=== PATIENT | female | born 1940 ===

== ENCOUNTER 2017-04-30 15:00 | Inpatient (IN) | payer OTHER, MEDICARE ==
[~2017-04-30] VITALS: Ht 154.9 cm; Wt 96.2 kg
[~2017-04-30 15:00] MED LIST: ABILIFY2 MG PO; ACETAMIN-CODE12.5 ML PO; ADVAIR 100-501 EACH INH; ASPIRIN81 M4 PO; ATIVAN1 M1 PO; ATORVASTATIN CA10 M1 PO; BENAZEPRIL HCL20 MG PO; CLARITIN10 M1 PO; DAILY MULTIPLE1 EACH PO; HYDROCHLOROTHIA25 M1 PO; LEVOTHYROXINE150 MCG PO; LUMIGAN2.5 ML OP; METAMUCIL PACK3.4 GM PO; METOPROLOL TART25 M1 PO; MOBIC15 M1 PO; MOTRIN IB200 M1 PO; NEURONTIN300 M1 PO; NYSTATIN15 G1 TOP; OMEPRAZOLE40 M1 PO; PRESERVISION A1 EACH PO; SENNA8.6 M3 PO; SINGULAIR10 M1 PO; TRAMADOL HCL50 M1 PO; TYLENOL ARTHRI650 M1 PO; VITAMIN D1000 UNIT PO; XANAX0.25 M1 PO; ZOLOFT100 M1 PO; ZYRTEC10 M3 PO
--- NOTE | 2017-04-30 15:09 | ED MVC/FALL/TRAUMA COMPLAINT ---
History of Present Illness General Chief Complaint: Fall Stated Complaint: FALL, ?LEFT ANKLE FX Source: patient, old records, EMS Exam Limitations: no limitations Vital Signs & Intake/Output Vital Signs & Intake/Output Vital Signs Date Time Temp Pulse Resp B/P B/P Pulse O2 O2 Flow FiO2 Mean Ox Delivery Rate 05/03 0629 98.9 84 20 138/84 92 05/02 2259 99.3 93 16 128/68 92 05/02 1600 91 Room Air 05/02 1506 99.3 95 20 112/66 91 Room Air 05/02 1110 57 118/78 05/02 1046 Nasal 2.0L Cannula ED Intake and Output 05/03 0000 05/02 1200 Intake Total 600 470 Output Total 450 200 Balance 150 270 Intake, IV 230 Intake, Oral 600 240 Output, Urine 450 200 Allergies Coded Allergies: erythromycin base (From ERYTHROCIN) (Mild, RASH 12/20/16) Triage Nurses Notes Reviewed? yes Onset: Abrupt Duration: hour(s): (1), constant Timing: recent history Severity: severe Severity Numbers: 10 Injuries/Fall Location: lower extremity Method of Injury: fall Loss of Consciousness: no loss of consciousness Modifying Factors: Improves With: rest. Worsens With: movement. Associated Symptoms: denies HPI: 76-year-old female history of hypertension COPD presents status post mechanical fall when she was attempting to get into her car she tripped over her right foot and sustaining injury to her left ankle. Patient states that she did not hit her head there was no loss of consciousness she denies any neck or back pain there is no prodromal dizziness or lightheadedness prior to her fall. She denies any chest pain arm injury neck or back pain. She denies any hip or knee pain the pain to her ankles worse with attempted ambulation and movement. She denies any right leg pain (Jonnathan Cummings) Reconcile Medications Acetaminophen (Tylenol Arthritis) 650 MG TABLET.ER 1 TAB PO Q4 HRS NEEDED PRN PAIN (Reported) Acetaminophen With Codeine (Acetamin-Codein 300-30 MG/12.5) 300 MG-30 MG/12.5 ML (12.5 ML) SOLUTION 1 TAB PO Q8P PRN PRESCRIBED (Reported) Aripiprazole (Abilify) 2 MG TABLET 2 MG PO DAILY PRESCRIBED (Reported) Aspirin (Aspirin*) 81 MG TAB.CHEW 81 MG PO DAILY HEART HEALTH (Reported) Atorvastatin Calcium 10 MG TABLET 10 MG PO DAILY PRESCRIBED (Reported) Benazepril HCl 20 MG TABLET 20 MG PO DAILY PRESCRIBED (Reported) Bimatoprost (Lumigan) 0.01 % DROPS 1 GTT OP DAILY PRESCRIBED (Reported) Cetirizine HCl (Zyrtec) 10 MG TABLET 1 TAB PO DAILY ALLERGIES (Reported) Cholecalciferol (Vitamin D3) (Vitamin D) 1,000 UNIT TABLET 1,000 UNITS PO DAILY PRESCRIBED (Reported) Fluticasone-Salmeterol (Advair 100-50 Diskus) 100 MCG-50 MCG/DOSE BLST.W.DEV 1 PUFF INH BID PRESCRIBED (Reported) Gabapentin (Neurontin) 300 MG CAPSULE 300 MG PO DAILY PRESCRIBED (Reported) Hydrochlorothiazide 25 MG TABLET 25 MG PO DAILY PRESCRIBED (Reported) Ibuprofen (Motrin Ib) 200 MG TABLET 800 MG PO 3-4XDP PRESCRIBED (Reported) Levothyroxine Sodium 150 MCG TABLET 1 TAB PO DAILY AC THYROID (Reported) LORazepam (Ativan) 1 MG TABLET 1 MG PO BID PRESCRIBED (Reported) Meloxicam (Mobic) 15 MG TABLET 15 MG PO DAILY NEEDED PRESCRIBED (Reported) Metoprolol Tartrate 25 MG TABLET 25 MG PO DAILY PRESCRIBED (Reported) Montelukast Sodium (Singulair) 10 MG TABLET 10 MG PO DAILY PRESCRIBED ( Reported) Nystatin 100,000 UNIT/GRAM CREAM..G. 1 JYOTI TOP BIDP PRN PRESCRIBED (Reported) Omeprazole 40 MG CAPSULE.DR 1 CAP PO DAILY GI (Reported) Sennosides (Senna) 8.6 MG TABLET 8.6 MG PO DAILY PRESCRIBED (Reported) Sertraline HCl (Zoloft) 100 MG TABLET 150 MG PO DAILY PRESCRIBED (Reported) Tramadol HCl 50 MG TABLET 50 MG PO 4XDP PRESCRIBED (Reported) Vit A/Vit C/Vit E/Zinc/Copper (Preservision Areds Tablet) 7,160-113 TABLET 1 TAB PO BID EYE (Reported) (Yue PHAM,Anastacio Iverson) Past History Medical History Any Pertinent Medical History? see below for history Neurological: NONE EENT: NONE Cardiovascular: hypertension Respiratory: asthma, COPD Gastrointestinal: diverticulitis Hepatic: NONE Renal: NONE Musculoskeletal: osteoarthritis Psychiatric: NONE Endocrine: NONE Blood Disorders: NONE Cancer(s): NONE CHEMISTRY TECHNICIAN/Reproductive: NONE Surgical History Surgical History: non-contributory Psychosocial History What is your primary language Chinese Family History Hx Contributory? No (Jonnathan Cummings) Review of Systems Review of Systems Constitutional: Reports: see HPI. Comments Review of systems: See HPI, All other systems negative. Constitutional, no chills no fever, HEENT: no sore throat no congestion, Cardiovascular: No chest pain Skin: no rashes, no change in skin Respiratory: No dyspnea no cough no sputum GI: No nausea no vomiting, no diarrhea : No dysuria Muscle skeletal: joint pain, no back pain, no neck pain, Neurologic: , no headache Psych: No stress Heme/endocrine: No bruising immune: no lymphadenpathy (Jonnathan Cummings) Physical Exam Physical Exam General Appearance: well developed/nourished, alert, awake, mild distress Comments: Well-developed well-nourished patient in no apparent distress. HEENT: Atraumatic, extraocular motion intact Neck: Supple, FROM nontender Back: FROM nontender Cardiovascular: Regular rate and rhythms no murmurs rubs or gallops, Respiratory: Chest nontender.There were no bony deformities, no asymmetry. No respiratory distress. Patient speaking in full complete sentences. Breath sounds clear to auscultation bilaterally: NO W/R/R abdomen: Soft nontender no rebound no guarding Upper Extremities: Atraumatic full range of motion Hip/Pelvis: Atraumatic/Stable. FROM. No pain with pelvic compression Knee: Atraumatic/stable. FROM, no ecchymosis. No joint swelling, no effusion. No laxity. Negative veronica/anterior drawer test. No pain with ROM Leg: Atraumatic. Nontender. No edema, 5 out of 5 strength in the lower extremity, normal dorsiflexion of great toe bilaterally, gross sensation is intact, patellar tendon reflex 2+ bilaterally. Ankle/Foot:skin is intact, severely Limited range of motion secondary to pain there is positive deformity noted to the left ankle (+) swelling Pulses: Normal/equal DP/PT pulses bilaterally. Brisk cap refill Neuro: awake, alert, and oriented to person, place and time. There were no obvious focal neurologic abnormalities. Skin: Warm & dry;No appreciable rash on exposed skin Psych: Mood affect normal, normal memory normal judgment. Core Measures ACS in differential dx? No CVA/TIA Diagnosis No Sepsis Present: No Sepsis Focused Exam Completed? No (Nikki SQUIRES,Jonnathan) Progress Differential Diagnosis: C/T/L spine injury, ext injury, ICH, spinal cord injury Plan of Care: Orders Procedure Date/time Status CBC WITHOUT DIFFERENTIAL 05/03 600 Active BASIC ELECTROLYTES PLUS BUN&CR 05/03 600 Active PHARMACY COMMUNICATION FORM 05/03 UNK Active MISSING MEDICATION FORM 05/03 UNK Active Elevate 05/02 2031 Active PT Evaluate & Treat 05/02 UNK Active OXYGEN SETUP CHG 05/01 UNK Complete OXYGEN 05/01 UNK Complete OXYGEN TRANSPORT 05/01 UNK Complete Current Medications Sig/Sari Start time Last Medication Dose Stop Time Status Admin Hydrochlorothiazide 25 MG DAILY 05/03 1000 AC (Hydrodiuril) Lidocaine 1 PAT 1000 05/03 1000 AC (Lidoderm) Apixaban 2.5 MG BID 05/02 1326 AC 05/02 (Eliquis) 2106 Aripiprazole 2 MG DAILY 05/02 1000 AC 05/02 (Abilify) 1110 Latanoprost 1 GTT AT BEDTIME 05/01 2200 AC 05/02 (Xalatan) 2106 Lorazepam 1 MG BID 05/01 2200 AC 05/02 (Ativan) 2106 Montelukast Sodium 10 MG 2200 05/01 2200 AC 05/02 (Singulair) 2106 Atorvastatin Calcium 10 MG 1700 05/01 1700 AC 05/02 (Lipitor) 1653 Hydromorphone HCl 0.6 MG Q6-PRN PRN 05/01 1315 AC 05/03 (Dilaudid) 0532 Budesonide/ 2 PUF BID 05/01 1000 AC 05/02 Formoterol Fumarate 2106 (SYMBICORT) Gabapentin 300 MG DAILY 05/01 1000 AC 05/02 (Neurontin) 1110 Metoprolol Succinate 25 MG DAILY 05/01 1000 AC 05/02 (Toprol XL) 1110 Sertraline HCl 150 MG DAILY 05/01 1000 AC 05/02 (Zoloft) 1110 Levothyroxine Sodium 0.15 MG DAILY AC 05/01 0700 AC 05/03 (Synthroid) 0523 Omeprazole 40 MG DAILY AC 05/01 0700 AC 05/03 (Prilosec) 0523 Heparin Sodium 5,000 UNIT Q8 05/01 0600 AC 05/03 (Porcine) 0522 Acetaminophen 650 MG Q8P PRN 04/30 2345 AC (Tylenol) Oxycodone HCl 5 MG Q6-PRN PRN 04/30 2345 AC 05/02 (Roxicodone) 1841 Laboratory Tests 05/03/17 0755: Sodium Pending, Potassium Pending, Chloride Pending, Carbon Dioxide Pending, Anion Gap Pending, BUN Pending, Creatinine Pending, BUN/Creatinine Ratio Pending , CBC w Diff Pending, WBC Pending, RBC Pending, Hgb Pending, Hct Pending, MCV Pending, MCH Pending, RDW Pending, Plt Count Pending, MPV Pending, PUBS MCHC Pending X-ray ordered patient medicated subcutaneous morphine Dr. Turner was at bedside conscious sedation was performed by myself and Dr. turner using etomidate 10 mg Dilaudid 1 mg the ankle was reduced posterior and sugar tong splint was applied by me neurovascularly intact prior to and after application of splint post reduction films ordered 1909 CASE D/W DR VAZQUEZ advised to keep pt npo this evening as he may attempt to perform surgery in AM 04/30/2017 7:25:16 PM discussed with the patient her x-ray findings post reduction, her pain is controlled currently she is resting in no apparent distress declining anything for pain offered. call placed to Diagnostic Imaging: Viewed by Me: Radiology Read. Discussed w/RAD: Radiology Read. Radiology Impression: PATIENT: MIRNA GRANDE PRESENT AGE: 76 PATIENT ACCOUNT NO: [id number] : 38 LOCATION: [facility] ORDERING PHYSICIAN: Jonnathan SQUIRES SERVICE DATE: 04/30/17 EXAM TYPE: RAD - XRY- ANKLE 3 OR MORE VIEWS L EXAMINATION: XR ANKLE, LEFT CLINICAL INFORMATION: Fall. Pain. COMPARISON: None TECHNIQUE: AP, lateral, and mortise views of the left ankle. FINDINGS: A fracture dislocation injury is present at the left ankle. A transverse fracture is present at the base the medial malleolus with lateral displacement of the malleolar fragment by 3 cm. The talus is dislocated posterolaterally with valgus angulation at the ankle. A distal fibular fracture is present with cephalad 3 cm in addition to lateral displacement and valgus angulation. Soft tissues are swollen and edematous. The medial malleolar base may disrupt the skin surface at the medial ankle. Degenerative arthritis is present in the midfoot. IMPRESSION: Laterally displaced bimalleolar fracture with posterolateral dislocation of the talus and valgus angulation DICTATED BY: Marino Lazo MD DATE/TIME DICTATED:04/30/171722 CLASSIFICATION CASE MANAGER:REYNA DATE/TIME TRANSCRIBED:04/30/171722 CONFIDENTIAL, DO NOT COPY WITHOUT APPROPRIATE AUTHORIZATION. <Electronically signed in Other Vendor System> SIGNED BY: Marino Lazo MD 04/30/171729, PATIENT: MIRNA GRANDE PRESENT AGE: 76 PATIENT ACCOUNT NO: [id number] : 38 LOCATION: [facility] ORDERING PHYSICIAN: Jonnathan SQUIRES SERVICE DATE: 04/30/17 EXAM TYPE : RAD - XRY-KNEE COMPLETE LEFT EXAMINATION: XR KNEE, LEFT CLINICAL INFORMATION: Trauma. Left ankle fracture. Pain. Rule out knee injury. COMPARISON: None TECHNIQUE: AP, lateral, and both oblique views of the left knee. FINDINGS: Prosthetic components of the left total knee arthroplasty are appropriately aligned. There is seen on the externally rotated oblique view, there is a subtle lucency through the medial femoral epicondyle which is age indeterminant. Additional fractures are suspected. No Without abnormal periprosthetic lucency. No component migration. No joint effusion. IMPRESSION: Appropriate alignment of the left total knee arthroplasty. Linear lucency through the medial femoral epicondyle is indeterminate, possibly an acute fracture. Recommend correlation for point tenderness in this region. DICTATED BY: Marino Lazo MD DATE/TIME DICTATED:04/30/171726 CLASSIFICATION CASE MANAGER:REYNA DATE/TIME TRANSCRIBED:1726 CONFIDENTIAL, DO NOT COPY WITHOUT APPROPRIATE AUTHORIZATION. < Electronically signed in Other Vendor System> SIGNED BY: Marino Lazo MD 04/30/171732, PATIENT: MIRNA GRANDE PRESENT AGE: 76 PATIENT ACCOUNT NO: [id number] : 38 LOCATION: [facility] ORDERING PHYSICIAN: Jonnathan SQUIRES SERVICE DATE: 04/30/17 EXAM TYPE: RAD - XRY-TWO VIEW LEFT ANKLE EXAMINATION: XR ANKLE, LEFT CLINICAL INFORMATION: Post reduction. COMPARISON: Ankle radiograph performed 04/30/2017 at 4:30 PM. TECHNIQUE: AP, lateral, and mortise views of the left ankle. FINDINGS: There has been interval reduction of the laterally displaced bimalleolar fracture and reapproximation of the tibiotalar articulation. There is residual angulation of the distal fibular fracture and lateral subluxation of the distal tibia with respect to the talus with widening of the lateral clear space. There is soft tissue swelling and an overlying splint. IMPRESSION: - Interval reduction of the laterally displaced bimalleolar fracture and reapproximation of the talotibial articulation. - Persistent angulation and offset of the distal fibular fracture and widening of the lateral clear space. DICTATED BY: Sari Cochran MD DATE/TIME DICTATED:1905 CLASSIFICATION CASE MANAGER:REYNA DATE/TIME TRANSCRIBED:04/30/171905 CONFIDENTIAL, DO NOT COPY WITHOUT APPROPRIATE AUTHORIZATION. <Electronically signed in Other Vendor System> SIGNED BY: Sari Cochran MD 04/30/171916 (Jonnathan Cummings) Comments: 04/30/2017 6:02:09 PM patient's left ankle fracture dislocation reduced by PA with my direct assistance during the entire procedure. Patient was reduced under etomidate sedation. Oxygen saturation and heart rate remained normal through the procedure. Patient was hypertensive towards the end of the procedure. (Yue PHAM,Anastacio Iverson) Departure Departure Time of Disposition: 2049 Disposition: STILL A PATIENT Condition: Stable Clinical Impression Primary Impression: Ankle dislocation Secondary Impressions: Ankle fracture Referrals: Julia PHAM,Ajay Daley (PCP/Family) Departure Forms: Customer Survey General Discharge Information Admission Note Spoke With: Ana Galindo MD Documentation of Exam: Documentation of any treatments & extenuating circumstances including Concerns Regarding Discharge (functional status, medication knowledge or non-compliance, living conditions, etc.) that warrant an admission rather than observation: ortho consult for fixation, pt will require rehab, iv pain control, preamture discharge woudl be medicall y harmful (Jonnathan Cummings) PA/DOUGH MIXER Co-Sign Statement Statement: ED Attending supervision documentation- [x] I saw and evaluated the patient. I have also reviewed all the pertinent lab results and diagnostic results. I agree with the findings and the plan of care as documented in the PA's/DOUGH MIXER's documentation. Patient presents for evaluation of an ankle injury status post fall. Physical examination reveals an obvious deformity of the left ankle, the left foot remaining neurovascularly intact. I was present throughout the patient's conscious sedation and ankle fracture reduction. [] I have reviewed the ED Record and agree with the PA's/DOUGH MIXER's documentation. [] Additions or exceptions (if any) to the PAs/DOUGH MIXER's note and plan are summarized below: [] (Yue PHAM,Anastacio Iverson) PA/DOUGH MIXER Co-Sign Statement Statement: ED Attending supervision documentation- [X] I saw and evaluated the patient. I have also reviewed all the pertinent lab results and diagnostic results. I agree with the findings and the plan of care as documented in the PA's/DOUGH MIXER's documentation. [X] I have reviewed the ED Record and agree with the PA's/DOUGH MIXER's documentation. [] Additions or exceptions (if any) to the PAs/DOUGH MIXER's note and plan are summarized below: [IV PAIN CONTROL, ORTHO CONSULT AND PROBABLE SURGERY, PT EVALUATION AND TREATMENT] (Kristine PHAM,Vlad Daley) Procedures Splinting Location: L ANKLE Manual Alignment Performed: Yes Hand-Made Type: orthoglass Splint: sugar-tong, posterior walking Splint Applied By: splint applied by ky Pre-Proc Neuro Vasc Exam: normal Post-Proc Neuro Vasc Exam: normal Joint Reduction Joint Reduction Site: L ANKLE Conscious Sedation: performed by other (DR TURNER) Reduction Attempts: 1 Pre-Procedure NV Exam: Yes Post-Procedure NV Exam: Yes Post Joint Reduction Film: joint reduced Procedural Sedation Sedation Type: moderate Indication: DISLOCATION Prior Complications: none ASA Classification: E Airway: normal anatomy Mallampati Classification: Class 1 Preparation: plan explained to patient, hospital consent signed, oximetry during procedure, capnometry during procedu, IV access obtained, suction immediately avail, awake overnight monitor used Sedation: etomidate Complications During/After Procedure: none Post Sedation Score: see sedation record I personally performed: sedation Intra-Service Time: 30 minutes or less (Jonnathan Cummings)
--- NOTE | 2017-04-30 17:30 | RADIOLOGY REPORT ---
EXAMINATION: XR ANKLE, LEFT CLINICAL INFORMATION: Fall. Pain. COMPARISON: None TECHNIQUE: AP, lateral, and mortise views of the left ankle. FINDINGS: A fracture dislocation injury is present at the left ankle. A transverse fracture is present at the base the medial malleolus with lateral displacement of the malleolar fragment by 3 cm. The talus is dislocated posterolaterally with valgus angulation at the ankle. A distal fibular fracture is present with cephalad 3 cm in addition to lateral displacement and valgus angulation. Soft tissues are swollen and edematous. The medial malleolar base may disrupt the skin surface at the medial ankle. Degenerative arthritis is present in the midfoot. IMPRESSION: Laterally displaced bimalleolar fracture with posterolateral dislocation of the talus and valgus angulation
--- NOTE | 2017-04-30 17:31 | RADIOLOGY REPORT ---
EXAMINATION: XR HIP, LEFT CLINICAL INFORMATION: Fall. Ankle deformity. COMPARISON: 04/03/2017 TECHNIQUE: AP and crosstable lateral views of the left hip. FINDINGS: Mild degenerative arthritis the left hip is characterized by mild cephalad joint space narrowing and small marginal osteophytes. Bones are osteopenic. No acute fracture or malalignment. Phleboliths an chain diana are present in the pelvis. IMPRESSION: No acute fracture or malalignment in the left hip. Mild degenerative arthritis.
--- NOTE | 2017-04-30 17:33 | RADIOLOGY REPORT ---
EXAMINATION: XR KNEE, LEFT CLINICAL INFORMATION: Trauma. Left ankle fracture. Pain. Rule out knee injury. COMPARISON: None TECHNIQUE: AP, lateral, and both oblique views of the left knee. FINDINGS: Prosthetic components of the left total knee arthroplasty are appropriately aligned. There is seen on the externally rotated oblique view, there is a subtle lucency through the medial femoral epicondyle which is age indeterminant. Additional fractures are suspected. No Without abnormal periprosthetic lucency. No component migration. No joint effusion. IMPRESSION: Appropriate alignment of the left total knee arthroplasty. Linear lucency through the medial femoral epicondyle is indeterminate, possibly an acute fracture. Recommend correlation for point tenderness in this region.
--- NOTE | 2017-04-30 19:17 | RADIOLOGY REPORT ---
EXAMINATION: XR ANKLE, LEFT CLINICAL INFORMATION: Post reduction. COMPARISON: Ankle radiograph performed 04/30/2017 at 4:30 PM. TECHNIQUE: AP, lateral, and mortise views of the left ankle. FINDINGS: There has been interval reduction of the laterally displaced bimalleolar fracture and reapproximation of the tibiotalar articulation. There is residual angulation of the distal fibular fracture and lateral subluxation of the distal tibia with respect to the talus with widening of the lateral clear space. There is soft tissue swelling and an overlying splint. IMPRESSION: - Interval reduction of the laterally displaced bimalleolar fracture and reapproximation of the talotibial articulation. - Persistent angulation and offset of the distal fibular fracture and widening of the lateral clear space.
[2017-04-30 20:14] LABS: ABSOLUTE BASOPHIL COUNT 0.1 /CUMM (0.0-0.2); ABSOLUTE EOSINOPHIL COUNT 0.3 /CUMM (0.0-0.7); ABSOLUTE GRANULOCYTE CT 8.3 /CUMM (1.4-6.5); ABSOLUTE LYMPH COUNT 1.5 /CUMM (1.2-3.4); ABSOLUTE MONOCYTE COUNT 0.9 /CUMM (0.10-0.60); BASOPHIL % 0.5 % (0.0-2.0); EOSINOPHIL % 2.4 % (0-5); GRANULOCYTE % 75.5 % (42.2-75.2); HEMATOCRIT 34.8 % (37-47); MEAN CORPUSCULAR HGB 26.4 PG (27.0-31.0); MEAN CORPUSCULAR HGB CONC 32.4 G/DL (33.0-37.0); MEAN CORPUSCULAR VOLUME 81.2 FL (81.0-99.0); MEAN PLATELET VOLUME 7.4 FL (7.4-10.4); PLATELET COUNT 238 /CUMM (130-400); RED BLOOD CELL CT 4.28 /CUMM (4.20-5.40); WHITE BLOOD CELL COUNT 11.1 /CUMM (4.8-10.8)
[2017-04-30 20:30] LABS: PT 10.9 SEC (9.4-12.5); PTT 32 SEC (25-37)
--- NOTE | 2017-04-30 22:24 | History & Physical ---
Ara Dowling MD 04/30/17 2224: General Information and HPI MD Statement: I have seen and personally examined MIRNA MARQUEZ and documented this H&P. The patient is a 76 year old F who presented with a patient stated chief complaint of fall]. Source of Information: patient Exam Limitations: no limitations History of Present Illness: She is a 76-year-old lady with past medical history of COPD, asthma, hypothyroidism, hypertension, hyperlipidemia, depression, diverticulitis came to [facility] with complaints of fall while trying to get inside the car. According to the patient, she tried to get into the car following which she tripped and fell on her back with no history of any loss of consciousness, dizziness or head injury. Patient immediately felt a cracking sensation in her left foot and was brought to [facility]. She describes the pain as sharp pain 8 x 10 radiating up to the level of hip, since then patient is not able to walk or move her left leg. Patient denies history of chest pain, chest pressure, lightheadedness, shortness of breath, abdominal pain, abdominal cramps, dysuria, hematuria, blood in stool, weakness. Patient had similar fall in March came to [facility], with no evidence of any fracture. At baseline patient uses cane at home and rolling walker sometimes. Past surgical history-bilateral knee replacement, right hip replacement, diverticulosis status post left hemicolectomy 10 years ago. Allergies/Medications Allergies: Coded Allergies: erythromycin base (From ERYTHROCIN) (Mild, RASH 12/20/16) Home Med list Acetaminophen (Tylenol Arthritis) 650 MG TABLET.ER 1 TAB PO Q4 HRS NEEDED PRN PAIN (Reported) Acetaminophen With Codeine (Acetamin-Codein 300-30 MG/12.5) 300 MG-30 MG/12.5 ML (12.5 ML) SOLUTION 1 TAB PO Q8P PRN PRESCRIBED (Reported) Alprazolam (Xanax) 0.25 MG TABLET 0.25 MG PO TID PRN ANXIETY (Reported) Aripiprazole (Abilify) 2 MG TABLET 2 MG PO DAILY PRESCRIBED (Reported) Aspirin (Aspirin*) 81 MG TAB.CHEW 81 MG PO DAILY HEART HEALTH (Reported) Atorvastatin Calcium 10 MG TABLET 10 MG PO DAILY PRESCRIBED (Reported) Benazepril HCl 20 MG TABLET 20 MG PO DAILY PRESCRIBED (Reported) Bimatoprost (Lumigan) 0.01 % DROPS 1 GTT OP DAILY PRESCRIBED (Reported) Cetirizine HCl (Zyrtec) 10 MG TABLET 1 TAB PO DAILY ALLERGIES (Reported) Cholecalciferol (Vitamin D3) (Vitamin D) 1,000 UNIT TABLET 1,000 UNITS PO DAILY PRESCRIBED (Reported) Fluticasone-Salmeterol (Advair 100-50 Diskus) 100 MCG-50 MCG/DOSE BLST.W.DEV 1 PUFF INH BID PRESCRIBED (Reported) Gabapentin (Neurontin) 300 MG CAPSULE 300 MG PO DAILY PRESCRIBED (Reported) Hydrochlorothiazide 25 MG TABLET 25 MG PO DAILY PRESCRIBED (Reported) Ibuprofen (Motrin Ib) 200 MG TABLET 800 MG PO 3-4XDP PRESCRIBED (Reported) Levothyroxine Sodium 150 MCG TABLET 1 TAB PO DAILY AC THYROID (Reported) LORazepam (Ativan) 1 MG TABLET 1 MG PO BID PRESCRIBED (Reported) Meloxicam (Mobic) 15 MG TABLET 15 MG PO DAILY NEEDED PRESCRIBED (Reported) Metoprolol Tartrate 25 MG TABLET 25 MG PO DAILY PRESCRIBED (Reported) Montelukast Sodium (Singulair) 10 MG TABLET 10 MG PO DAILY PRESCRIBED ( Reported) Nystatin 100,000 UNIT/GRAM CREAM..G. 1 JYOTI TOP BIDP PRN PRESCRIBED (Reported) Omeprazole 40 MG CAPSULE.DR 1 CAP PO DAILY GI (Reported) Psyllium Hydrophylic Muciloid (Metamucil Packet) 3.4 GRAM POWD.PACK (Unknown Dose) PO DAILY NEE PRESCRIBED (Reported) Sennosides (Senna) 8.6 MG TABLET 8.6 MG PO DAILY PRESCRIBED (Reported) Sertraline HCl (Zoloft) 100 MG TABLET 150 MG PO DAILY PRESCRIBED (Reported) Tramadol HCl 50 MG TABLET 50 MG PO 4XDP PRESCRIBED (Reported) Vit A/Vit C/Vit E/Zinc/Copper (Preservision Areds Tablet) 7,160-113 TABLET 1 TAB PO BID EYE (Reported) Compliance With Home Meds: GOOD Past History Travel History Traveled to [place] past 21 day No Medical History Neurological: NONE EENT: NONE Cardiovascular: hypertension Respiratory: asthma, COPD Gastrointestinal: diverticulitis Hepatic: NONE Renal: NONE Musculoskeletal: osteoarthritis Psychiatric: NONE Endocrine: NONE Blood Disorders: NONE Cancer(s): NONE HIGH RIGGER/Reproductive: NONE Surgical History Surgical History: non-contributory Past Family/Social History Family History Relations & Conditions if any Relation not specified for: *No pertinent family history Psychosocial History Where do you live? Home Who Do You Live With? self Services at Home: None Primary Language: Latvian Smoking Status: Never Smoked ETOH Use: denies use Illicit Drug Use: denies illicit drug use Functional Ability ADLs Independent: dressing, eating, toileting, bathing. Ambulation: cane, walker IADLs Independent: shopping, housework, finances, food prep, telephone, medication admin. Review of Systems Review of Systems Constitutional: Reports: no symptoms. EENTM: Reports: no symptoms. Cardiovascular: Reports: no symptoms. Respiratory: Reports: no symptoms. GI: Reports: no symptoms. Genitourinary: Reports: no symptoms. Musculoskeletal: Reports: joint pain (leg pain). Neurological/Psychological: Reports: no symptoms. Exam & Diagnostic Data Last 24 Hrs of Vital Signs/I&O Vital Signs Date Time Temp Pulse Resp B/P B/P Pulse O2 O2 Flow FiO2 Mean Ox Delivery Rate 04/30 2258 Nasal 2.0L Cannula 04/30 2258 98.1 86 16 140/80 90 Room Air 04/30 2215 97.7 80 14 136/78 96 Room Air 04/30 2209 Room Air 04/30 2059 97.4 79 18 131/78 97 Room Air 04/30 1505 98.0 78 16 171/84 92 Room Air Intake & Output 05/01 0800 05/01 0000 04/30 1600 Intake Total 500 Output Total 30 Balance 470 Intake, IV 500 Output, Urine 30 Patient 212 lb Weight Physical Exam General Appearance Alert, Oriented X3, Cooperative, Mild Distress HEENT Atraumatic Cardiovascular Regular Rate, Normal S1, Normal S2, No Murmurs Lungs Clear to Auscultation Abdomen Normal Bowel Sounds, Soft, No Tenderness Neurological Normal Speech, Strength at 5/5 X4 Ext, Normal Tone, Sensation Intact Extremities left leg externally rotated Last 24 Hrs of Labs/Jake: Laboratory Tests 04/30/172002: Anion Gap 8, Estimated GFR > 60, BUN/Creatinine Ratio 23.8, Glucose 91, Calcium 8.6, Total Bilirubin 0.3, AST 30, ALT 23, Alkaline Phosphatase 104, Total Protein 6.2 L, Albumin 3.6, Globulin 2.6, Albumin/Globulin Ratio 1.4, PT 10.9, INR 1.04, APTT 32, CBC w Diff NO MAN DIFF REQ, RBC 4.28, MCV 81.2, MCH 26.4 L, RDW 17.0 H, MPV 7.4, Gran % 75.5 H, Lymphocytes % 13.6 L, Monocytes % 8.0, Eosinophils % 2.4, Basophils % 0.5, Absolute Granulocytes 8.3 H, Absolute Lymphocytes 1.5, Absolute Monocytes 0.9 H, Absolute Eosinophils 0.3, Absolute Basophils 0.1, PUBS MCHC 32.4 L Diagnostic Data Other Results Ankle x-ray IMPRESSION: Laterally displaced bimalleolar fracture with posterolateral dislocation of the talus and valgus angulation Assessment/Plan Assessment: She is a 76-year-old lady with past medical history of COPD, asthma, hypothyroidism, hypertension, hyperlipidemia, depression, diverticulitis came to [facility] with complaints of fall found to have displaced bimalleolar fracture with posterior lateral dislocation of the talus and valgus angulation and admitted to general medical floor for further management. Problem list 1. left Bimalleolar fracture 2. Hypertension 3. Hyperlipidemia 4. Depression 5. Nicotine dependence 6. Diverticulosis status post left hemicolectomy 7. Hypothyroidism In view of bimalleolar fracture which needs surgical intervention patient will be kept nothing by mouth and orthopedist informed, who is planning for surgery tomorrow morning. Patient RCRI index is 0.4%. We will continue her home medication omeprazole, sertraline, Singulair, metoprolol, levothyroxine, above pending, Symbicort, Lipitor, Xanax and manage her pain with Roxicodone, Lidoderm patch, Tylenol. We will hold her Abilify for now and continue after surgery. Code-DNR/DNI DVT prophylaxis-subcutaneous heparin As Ranked By This Provider Problem List: 1. Ankle fracture Core Measures/Misc (01/20) Acute Coronary Syndrome ACS Diagnosis: No Congestive Heart Failure Congestive Heart Failure Diagnosis No Cerebrovascular Accident CVA/TIA Diagnosis: No VTE (View Protocol) VTE Risk Factors Age>40 No Mechanical VTE Prophylaxis d/t Other No VTE Pharm Prophylaxis d/t Other Sepsis (View protocol) Sepsis Present: No Suzette Reveles 05/01/17 0932: Resident Review Statement Resident Statement: examined this patient, discussed with creative services intern, agreed with creative services intern, discussed with family Other Findings: Ms Marquez is a 76-year-old woman was brought with a chief concern of mechanical fall that resulted in ankle fracture. She has a PMHx off COPD (not on home oxygen) cyst, hypertension, knee replacement, right hip replacement, previous diuretic like this. She is currently on a couple of benzodiazepines for anxiety. On the day of presentation, she was trying to get into her car, and tripped and fell on the back. She did not have any loss of consciousness, or any prodromal symptoms prior to this injury. She did not have any shortness of breath, chest pain or palpitations. No lightheadedness or dizziness was reported. She was then brought to the ED for further management. She did not have a melena, bright red bleeding per rectum. She uses a cane at home, and is not very active at baseline. At the time of admission-temperature 98.0, pulse rate 78, blood pressure 171/84, pulse ox 92% room air. On examination-she was in mild distress, the bimalleolar fractures were reduced by the ED physician, and was by Ab bandage and could not be examined. Heart and lungs-within normal limits. No loss of sensation on the tips of fingers of left lower extremity, no paresthesias, no discoloration found. Pertinent lab findings-WBC 11.1, hemoglobin 11.3, platelets 288. Collect lites within normal limits, sodium 143, potassium 4.1, bicarbonate (slightly elevated) , likely from diuretic use. Renal function-BUN 19, creatinine 0.8. X-ray of left ankle revealed laterally displaced bimalleolar fracture with posterolateral dislocation of the talus and valgus angulation. Hip and knee x-ray of left side did not reveal any fractures. The reason for her fall that resulted in multiple fractures could be multifactorial which could be as simple as mechanical or due to use of benzodiazepines. She probably is severely deconditioned, and given her age which may have contributed to her fall and fractures. Plan: #1 bimalleolar fractures-reduced while in the ED, but would need surgical intervention. Orthopedic consult in the a.m. Rest at this time. Monitor neurological and skin changes regularly. Use Xanax only as when necessary, but would address the need for benzodiazepines at the time of discharge. She is nothing by mouth pending orthopedic evaluation. #2 pain management- with non-opiates, as much as possible. Could possibly try lower dose of morphine. #3 hypertension-continue metoprolol XL. DVT prophylaxis-subcutaneous heparin. Ana Galindo 05/01/17 0949: Attending MD Review Statement Attending Statement Attending MD Statement: examined this patient, discuss w/resident/PA/CRM MARKETING EXECUTIVE, agreed w/resident/PA/CRM MARKETING EXECUTIVE, reviewed EMR data (avail), reviewed images, amended to note Attending Assessment/Plan: CC: S/P fall PMH: Hypothyroidism, COPD, HTN, diverticulitis S/P hemicolectomy Patient was brought in ER after she had a fall. She was getting out of the car, he tripped and twisted ankle, fell on her back, had severe ankle pain radiating up to hip. She was found to have a laterally displaced bimalleolar fracture with the posterior lateral dislocation of talus and valgus angulation. There is also linear lucency through medial femur oral epicondyles, possibility of acute fracture. Ankle dislocation was reduced in ER Vitals: Unremarkable On exam: A O 3, cooperative, no acute distress, neck supple, JVD normal, no lymphadenopathy, mucosa moist, no focal neurological deficit, no dependent edema , no obvious skin rashes or inflammation left lower extremity in splint, CVS: S1 -S2, RRR. RS: Clear to auscultate bilaterally. Abdomen: Soft, NT, ND, bowel sounds present. Labs: CBC, BMP, LFT unremarkable, INR 1.04 X-ray left ankle: Laterally displaced bimalleolar fracture with posterolateral dislocation of the talus and valgus angulation X-ray left hip: Laterally displaced bimalleolar fracture with posterolateral dislocation of the talus and valgus angulation X-ray left knee: Appropriate alignment of the left total knee arthroplasty. Linear lucency through the medial femoral epicondyle is indeterminate, possibly an acute fracture. Recommend correlation for point tenderness in this region. Repeat x-ray ankle: Interval reduction of the laterally displaced bimalleolar fracture and reapproximation of the talotibial articulation. - Persistent angulation and offset of the distal fibular fracture and widening of the lateral clear space. Assessment and plan 76-year-old female was brought in ER after a mechanical fall. She she is found to have bimalleolar displaced fracture left ankle, she underwent reduction in ER which still shows persistent angulation and offset of the distal fibular fracture. There is also suspected acute fracture the medial femur oral epicondyles. Orthopedic was called from ER who plan to do surgery in the morning. Patient is low risk for surgery. RCRI 0.4 % risk of cardiac morbidity + Left ankle fracture dislocation + Preop evaluation + Hypothyroidism, COPD, HTN, diverticulitis S/P hemicolectomy - Admit to general medicine - Nothing by mouth after midnight - Orthopedic consult - Adequate pain control - Continue immobilization of left lower extremity - Continue all the home medications except Benzapril and HCTZ, resume once blood pressure is acceptable range - DVT prophylaxis with Alps evaluate - patient will need rehabilitation placement
[2017-04-30 22:58] VITALS: BP 140/80
[2017-05-01 06:41] VITALS: BP 160/80
--- NOTE | 2017-05-01 07:32 | PN- Housestaff ---
Nathen Leary 05/01/17 0732: Subjective Follow-up For: fall and foot fracture COPD Subjective: I have seen and examined the patient, she has pain in the foot. NPO for surgery today Review of Systems Constitutional: Reports: see HPI. Objective Last 24 Hrs of Vital Signs/I&O Vital Signs Date Time Temp Pulse Resp B/P B/P Pulse O2 O2 Flow FiO2 Mean Ox Delivery Rate 05/01 0913 144/82 05/01 0908 Nasal 2.0L Cannula 05/01 0641 99.3 75 20 160/80 94 Nasal 2.0L Cannula 05/01 0000 94 Nasal 2.0L Cannula 04/30 2258 Nasal 2.0L Cannula 04/30 2258 98.1 86 16 140/80 90 Room Air 04/30 2215 97.7 80 14 136/78 96 Room Air 04/30 2209 Room Air 04/30 2059 97.4 79 18 131/78 97 Room Air 04/30 1505 98.0 78 16 171/84 92 Room Air Intake & Output 05/01 1600 05/01 0800 05/01 0000 Intake Total 100 500 Output Total 300 30 Balance -200 470 Intake, IV 0 500 Intake, Oral 100 Number 0 Bowel Movements Output, Urine 300 30 Patient 96.162 kg Weight Physical Exam General Appearance: Alert, Oriented X3, Cooperative, No Acute Distress Assessment/Plan Assessment: 76 YO lady with PMH of Hypothyroidism, COPD, HTN, diverticulitis S/P hemicolectomy Patient was brought in ER after she had a fall. She was getting out of the car, he tripped and twisted ankle, fell on her back, had severe ankle pain radiating up to hip. She was found to have a laterally displaced bimalleolar fracture with the posterior lateral dislocation of talus and valgus angulation. There is also linear lucency through medial femur oral epicondyles, possibility of acute fracture. Ankle dislocation was reduced in ER Vitals: Unremarkable On exam: A O 3, cooperative, no acute distress, neck supple, JVD normal, no lymphadenopathy, mucosa moist, no focal neurological deficit, no dependent edema , no obvious skin rashes or inflammation left lower extremity in splint, CVS: S1 -S2, RRR. RS: Clear to auscultate bilaterally. Abdomen: Soft, NT, ND, bowel sounds present. Labs: CBC, BMP, LFT unremarkable, INR 1.04 X-ray left ankle: Laterally displaced bimalleolar fracture with posterolateral dislocation of the talus and valgus angulation X-ray left hip: Laterally displaced bimalleolar fracture with posterolateral dislocation of the talus and valgus angulation X-ray left knee: Appropriate alignment of the left total knee arthroplasty. Linear lucency through the medial femoral epicondyle is indeterminate, possibly an acute fracture. Recommend correlation for point tenderness in this region. Repeat x-ray ankle: Interval reduction of the laterally displaced bimalleolar fracture and reapproximation of the talotibial articulation. - Persistent angulation and offset of the distal fibular fracture and widening of the lateral clear space. Assessment and plan + Left ankle fracture dislocation + Preop evaluation RCRI 0.4 % risk of cardiac morbidity NPO for surgery - Orthopedic consult - Adequate pain control - Continue immobilization of left lower extremity + Hypothyroidism, COPD, HTN, diverticulitis S/P hemicolectomy - Continue all the home medications except Benzapril and HCTZ, resume once blood pressure is acceptable range Problem List: 1. Generalized weakness 2. Fall 3. Ankle fracture Pain Ratin Pain Location: left foot Pain Goal: Pain 4 or less Pain Plan: add IV acetaminophen Tomorrow's Labs & Rationales: CBC BEP Mar Gallego MD 05/01/17 1327: Attending MD Review Statement Attending Statement Attending MD Statement: examined this patient, discuss w/resident/PA/TUNNEL INSPECTOR, agreed w/resident/PA/TUNNEL INSPECTOR, reviewed EMR data (avail), discussed with nursing, reviewed images Attending Assessment/Plan: 76-year-old female past medical history of COPD and hypertension here status post a fall with a bimalleolar fracture and a questionable femoral epicondyle fracture. This was clearly trauma related. Patient is nothing by mouth awaiting orthopedic eval and likely surgery today. And we are controlling her pain.
--- NOTE | 2017-05-01 08:03 | Discharge Summary ---
Visit Information Visit Dates Admission Date: 04/30/17 Discharge Date: 05/03/2017 Hospital Course Course Attending Physician: Ana Galindo MD Primary Care Physician: Ajay Dumont MD Hospital Course: 76 YO lady with Hypothyroidism, COPD, HTN, diverticulitis S/P hemicolectomy came with fall Patient was brought in ER after she had a fall. She was getting out of the car, he tripped and twisted ankle, fell on her back, had severe ankle pain radiating up to hip. She was found to have a laterally displaced bimalleolar fracture with the posterior lateral dislocation of talus and valgus angulation. There is also linear lucency through medial femur oral epicondyles, possibility of acute fracture. Ankle dislocation was reduced in ER Vitals: Unremarkable On exam: A O 3, cooperative, no acute distress, neck supple, JVD normal, no lymphadenopathy, mucosa moist, no focal neurological deficit, no dependent edema , no obvious skin rashes or inflammation left lower extremity in splint, CVS: S1 -S2, RRR. RS: Clear to auscultate bilaterally. Abdomen: Soft, NT, ND, bowel sounds present. Labs: CBC, BMP, LFT unremarkable, INR 1.04 X-ray left ankle: Laterally displaced bimalleolar fracture with posterolateral dislocation of the talus and valgus angulation X-ray left hip: Laterally displaced bimalleolar fracture with posterolateral dislocation of the talus and valgus angulation X-ray left knee: Appropriate alignment of the left total knee arthroplasty. Linear lucency through the medial femoral epicondyle is indeterminate, possibly an acute fracture. Recommend correlation for point tenderness in this region. Repeat x-ray ankle: Interval reduction of the laterally displaced bimalleolar fracture and reapproximation of the talotibial articulation. - Persistent angulation and offset of the distal fibular fracture and widening of the lateral clear space. She was admitted to general medicine floor and treated for these medical conditions: # Left ankle fracture dislocation and morbid obesity RCRI 0.4 % risk of cardiac morbidity. she underwent Open reduction internal fixation left bimalleolar ankle fracture and needs DVT prophylaxis with eliquis 2.5 mg twice a day for 4 weeks.(last dose 05/30/2017) She will be discharged to [facility]. No evidence of acute hematoma after surgery.H&H stable. Patient should follow-up with the orthopedic surgeons 1 week after discharge.watch for bleeding. check CBC on 05/12/2016. NonWB LLE. # Hypothyroidism, COPD, HTN, diverticulitis S/P hemicolectomy ,anxiety Continue home medications of inhalers, levothyroxine, hydrochlorothiazide and CODY inhibitor and Ativan. No major events were observed. Allergies: Coded Allergies: erythromycin base (From ERYTHROCIN) (Mild, RASH 12/20/16) Significant Procedures: PATIENT: MERCEDES MARQUEZ PRESENT AGE: 76 PATIENT ACCOUNT NO: [id number] DATE OF : 38 ADMIT/SERVICE DATE: 04/30/17 ATTENDING PHYSICIAN: Ana Galindo MD PATIENT CARE UNIT CONFIDENTIAL COPY Operative/Inv Procedure Report Surgery Date: 05/01/17 Name of Procedure: Open reduction internal fixation left bimalleolar ankle fracture Pre-Operative Diagnosis: Left bimalleolar ankle fracture Post-Operative Diagnosis: Same Estimated Blood Loss: scant Surgeon/Curriculum Director: deb Anesthesia: general endotracheal tube IV Fluids: See anesthesia record Implants: Tyrese variax ankle plating system Drains: None Specimens: None Tourniquet: 70 minutes Complications: None Condition: Stable Operative Indication: Patient is a 76-year-old female had a mechanical fall on Saturday afternoon. She was seen in the emergency room a [facility] where x-rays revealed a bimalleolar ankle fracture dislocation. She was admitted to the medical service and cleared for surgical intervention which was strongly recommended due to the nature of the fracture. The risks and benefits the procedure discussed with the patient in detail prior to proceeding. Operative/Procedure Note Note: Once informed consent was obtained and the correct limb was identified the patient brought to operative room placed on table in the supine position. A bump was placed on the left hip. A thigh tourniquet was placed in left lower extremity. Left lower extremity was prepped and draped in usual sterile fashion. To begin the procedure a lateral incision was made over the fibula. Sharp dissection was carried down to skin and subcutaneous tissue with care to avoid neurovascular structures. The fibular fracture but easily identifiable and the fracture edges were cleaned off prior fracture reduction. The fracture was reduced and held in place with a reduction clamp. A lag screw was then placed across the fracture site using standard AO technique. Once this was done a multi hole cluster plate for the fibula which is anatomically comport from the Tyrese system was placed on the lateral fibula. This was pinned in place and plate position was confirmed with fluoroscopy in the AP and lateral planes. Locking screws of appropriate length were then used on the distal fibula through the cluster holes in order to secure the plate distally. 3.5 cortical screws were appropriate length were then used to secure the plate to the fibular shaft proximal to the fracture site. Excellent fracture reduction was obtained and maintained and confirmed using fluoroscopy in the AP, mortise, lateral planes. The wound was copiously irrigated and the tissues were closed with 0 Vicryl, 2-0 Vicryl sutures and the skin was closed diana. Attention was then turned to the medial malleolar fracture. Incision was made directly over the medial malleolus with care to avoid the saphenous vein malleolar fracture was easily identifiable and debris was cleared and a fracture reduction was done of the medial malleolus and held in place with a dental pick. 2 K wires for the 4.0 cannulated screws from [employer] system were then placed across the fracture site. Reduction was checked with fluoroscopy and 250 mm partially threaded 4.0 cannulated screws were placed over the guidewires for fracture stabilization and fixation. The guidewire was removed and final images confirmed excellent reduction of bimalleolar ankle fracture with alignment of the ankle satisfactory and the mortise and lateral planes. The medial malleolar incision was then irrigated and closed with 2-0 Vicryl interrupted sutures and diana. A sterile dressing and splint was applied and the patient was awakened taken recovery room in stable condition. This includes an operative report on Mercedes Marquez DICTATED BY: John José MD DATE/TIME DICTATED:05/02/171228 FINANCIAL UNDERWRITER:KEATON DATE/TIME TRANSCRIBED:05/02/171228 REPORT NUMBER:[id number] CONFIDENTIAL, DO NOT COPY WITHOUT APPROPRIATE AUTHORIZATION. <Electronically signed by John José MD> 05/02/17 1234 Pertinent Lab Results: PATIENT: MERCEDES MARQUEZ PRESENT AGE: 76 PATIENT ACCOUNT NO: [id number] : 38 LOCATION: [facility] ORDERING PHYSICIAN: Jonnathan SQUIRES SERVICE DATE: 04/30/17 EXAM TYPE: RAD - XRY-ANKLE 3 OR MORE VIEWS L EXAMINATION: XR ANKLE, LEFT CLINICAL INFORMATION: Fall. Pain. COMPARISON: None TECHNIQUE: AP, lateral, and mortise views of the left ankle. FINDINGS: A fracture dislocation injury is present at the left ankle. A transverse fracture is present at the base the medial malleolus with lateral displacement of the malleolar fragment by 3 cm. The talus is dislocated posterolaterally with valgus angulation at the ankle. A distal fibular fracture is present with cephalad 3 cm in addition to lateral displacement and valgus angulation. Soft tissues are swollen and edematous. The medial malleolar base may disrupt the skin surface at the medial ankle. Degenerative arthritis is present in the midfoot. IMPRESSION: Laterally displaced bimalleolar fracture with posterolateral dislocation of the talus and valgus angulation DICTATED BY: Marino Lazo MD DATE/TIME DICTATED:04/30/171722 FINANCIAL UNDERWRITER:DAVALOS DATE/TIME TRANSCRIBED:04/30/171722 CONFIDENTIAL, DO NOT COPY WITHOUT APPROPRIATE AUTHORIZATION. <Electronically signed in Other Vendor System> SIGNED BY: Marino Lazo MD 04/30/17 1730 ======== PATIENT: MERCEDES MARQUEZ PRESENT AGE: 76 PATIENT ACCOUNT NO: [id number] : 38 LOCATION: [facility] ORDERING PHYSICIAN: Jonnathan SQUIRES SERVICE DATE: 04/30/17 EXAM TYPE: RAD - XRY-HIP 2-3 VIEWS, LEFT EXAMINATION: XR HIP, LEFT CLINICAL INFORMATION: Fall. Ankle deformity. COMPARISON: 04/03/2017 TECHNIQUE: AP and crosstable lateral views of the left hip. FINDINGS: Mild degenerative arthritis the left hip is characterized by mild cephalad joint space narrowing and small marginal osteophytes. Bones are osteopenic. No acute fracture or malalignment. Phleboliths an chain diana are present in the pelvis. IMPRESSION: No acute fracture or malalignment in the left hip. Mild degenerative arthritis. DICTATED BY: Marino Lazo MD DATE/TIME DICTATED:04/30/171725 FINANCIAL UNDERWRITER:DAVALOS DATE/TIME TRANSCRIBED:04/30/171725 CONFIDENTIAL, DO NOT COPY WITHOUT APPROPRIATE AUTHORIZATION. <Electronically signed in Other Vendor System> SIGNED BY: Marino Lazo MD 04/30/171730 ===== PATIENT: MERCEDES MARQUEZ PRESENT AGE: 76 PATIENT ACCOUNT NO: [id number] : 38 LOCATION: [facility] ORDERING PHYSICIAN: Jonnathan SQUIRES SERVICE DATE: 04/30/17 EXAM TYPE: RAD - XRY-KNEE COMPLETE LEFT EXAMINATION: XR KNEE, LEFT CLINICAL INFORMATION: Trauma. Left ankle fracture. Pain. Rule out knee injury. COMPARISON: None TECHNIQUE: AP, lateral, and both oblique views of the left knee. FINDINGS: Prosthetic components of the left total knee arthroplasty are appropriately aligned. There is seen on the externally rotated oblique view, there is a subtle lucency through the medial femoral epicondyle which is age indeterminant. Additional fractures are suspected. No Without abnormal periprosthetic lucency. No component migration. No joint effusion. IMPRESSION: Appropriate alignment of the left total knee arthroplasty. Linear lucency through the medial femoral epicondyle is indeterminate, possibly an acute fracture. Recommend correlation for point tenderness in this region. DICTATED BY: Marino Lazo MD DATE/TIME DICTATED:04/30/171726 FINANCIAL UNDERWRITER:REYNA DATE/TIME TRANSCRIBED:04/30/171726 CONFIDENTIAL, DO NOT COPY WITHOUT APPROPRIATE AUTHORIZATION. <Electronically signed in Other Vendor System> SIGNED BY: Marino Lazo MD 04/30/171732 ========= PATIENT: MERCEDES MARQUEZ PRESENT AGE: 76 PATIENT ACCOUNT NO: [id number] : 38 LOCATION: [facility] ORDERING PHYSICIAN: Jonnathan SQUIRES SERVICE DATE: 04/30/17 EXAM TYPE: RAD - XRY-TWO VIEW LEFT ANKLE EXAMINATION: XR ANKLE, LEFT CLINICAL INFORMATION: Post reduction. COMPARISON: Ankle radiograph performed 04/30/2017 at 4:30 PM. TECHNIQUE: AP, lateral, and mortise views of the left ankle. FINDINGS: There has been interval reduction of the laterally displaced bimalleolar fracture and reapproximation of the tibiotalar articulation. There is residual angulation of the distal fibular fracture and lateral subluxation of the distal tibia with respect to the talus with widening of the lateral clear space. There is soft tissue swelling and an overlying splint. IMPRESSION: - Interval reduction of the laterally displaced bimalleolar fracture and reapproximation of the talotibial articulation. - Persistent angulation and offset of the distal fibular fracture and widening of the lateral clear space. DICTATED BY: Sari Cochran MD DATE/TIME DICTATED:04/30/171905 FINANCIAL UNDERWRITER:REYNA DATE/TIME TRANSCRIBED:04/30/171905 CONFIDENTIAL, DO NOT COPY WITHOUT APPROPRIATE AUTHORIZATION. <Electronically signed in Other Vendor System> SIGNED BY: Sari Cochran MD 04/30/171916 ====== PATIENT: MERCEDES MARQUEZ PRESENT AGE: 76 PATIENT ACCOUNT NO: [id number] : 38 LOCATION: [facility] ORDERING PHYSICIAN: John José MD SERVICE DATE: 05/01/17- EXAM TYPE: RAD - XRY-TWO VIEW LEFT ANKLE EXAMINATION: XR ANKLE, LEFT, C-arm imaging CLINICAL INFORMATION: ORIF, bimalleolar ankle fracture COMPARISON: Left ankle 04/30/2017 TECHNIQUE: C-arm imaging of the left ankle. Fluoroscopy time: 30 seconds. Number of images: 21 FINDINGS: Spot views show placement of orthopedic plate and screw lateral malleolus. There is 2 screws placed through the medial malleolus. Both malleolar fractures are fixated in alignment. IMPRESSION: Status post internal fixation bimalleolar fracture of ankle. DICTATED BY: Jesus Rose MD DATE/TIME DICTATED:05/01/172303 FINANCIAL UNDERWRITER:REYNA DATE/TIME TRANSCRIBED:05/01/172303 CONFIDENTIAL, DO NOT COPY WITHOUT APPROPRIATE AUTHORIZATION. <Electronically signed in Other Vendor System> SIGNED BY: Jesus Rose MD 05/01/17 103 Laboratory Tests 05/03 05/02 0755 0730 Chemistry Sodium (137 - 145 mmol/L) 143 139 Potassium (3.5 - 5.1 mmol/L) 3.9 4.0 Chloride (98 - 107 mmol/L) 106 106 Carbon Dioxide (22 - 30 mmol/L) 30 26 Anion Gap (5 - 16) 7 8 BUN (7 - 17 mg/dL) 21 H 20 H Creatinine (0.5 - 1.0 mg/dL) 0.7 0.6 Estimated GFR (>60 ml/min) > 60 > 60 BUN/Creatinine Ratio (7 - 25 %) 30.0 H 33.3 H Hematology CBC w Diff NO MAN DIFF REQ NO MAN DIFF REQ WBC (4.8 - 10.8 /CUMM) 9.2 9.8 RBC (4.20 - 5.40 /CUMM) 3.63 L 3.75 L Hgb (12.0 - 16.0 G/DL) 9.8 L 10.0 L Hct (37 - 47 %) 29.4 L 30.4 L MCV (81.0 - 99.0 FL) 81.0 81.1 MCH (27.0 - 31.0 PG) 27.1 26.8 L RDW (11.5 - 14.5 %) 17.4 H 17.0 H Plt Count (130 - 400 /CUMM) 182 203 MPV (7.4 - 10.4 FL) 8.1 8.5 Gran % (42.2 - 75.2 %) 63.6 82.3 H Lymphocytes % (20.5 - 51.1 %) 23.8 10.1 L Monocytes % (1.7 - 9.3 %) 9.6 H 7.5 Eosinophils % (0 - 5 %) 2.3 0 Basophils % (0.0 - 2.0 %) 0.7 0.1 Absolute Granulocytes (1.4 - 6.5 /CUMM) 5.9 8.0 H Absolute Lymphocytes (1.2 - 3.4 /CUMM) 2.2 1.0 L Absolute Monocytes (0.10 - 0.60 /CUMM) 0.9 H 0.7 H Absolute Eosinophils (0.0 - 0.7 /CUMM) 0.2 0 Absolute Basophils (0.0 - 0.2 /CUMM) 0.1 0 PUBS MCHC (33.0 - 37.0 G/DL) 33.4 33.0 05/01 Chemistry Sodium (137 - 145 mmol/L) 138 142 Potassium (3.5 - 5.1 mmol/L) 4.0 4.1 Chloride (98 - 107 mmol/L) 101 102 Carbon Dioxide (22 - 30 mmol/L) 29 32 H Anion Gap (5 - 16) 8 8 BUN (7 - 17 mg/dL) 18 H 19 H Creatinine (0.5 - 1.0 mg/dL) 0.7 0.8 Estimated GFR (>60 ml/min) > 60 > 60 BUN/Creatinine Ratio (7 - 25 %) 25.7 H 23.8 Glucose (65 - 99 mg/dL) 91 Calcium (8.4 - 10.2 mg/dL) 8.6 Total Bilirubin (0.2 - 1.3 mg/dL) 0.3 AST (14 - 36 U/L) 30 ALT (9 - 52 U/L) 23 Alkaline Phosphatase (<127 U/L) 104 Total Protein (6.3 - 8.2 g/dL) 6.2 L Albumin (3.5 - 5.0 g/dL) 3.6 Globulin (1.9 - 4.2 gm/dL) 2.6 Albumin/Globulin Ratio (1.1 - 2.2 %) 1.4 Coagulation PT (9.4 - 12.5 SEC) 10.9 INR (0.90 - 1.19) 1.04 APTT (25 - 37 SEC) 32 Hematology CBC w Diff NO MAN DIFF REQ NO MAN DIFF REQ WBC (4.8 - 10.8 /CUMM) 8.0 11.1 H RBC (4.20 - 5.40 /CUMM) 3.91 L 4.28 Hgb (12.0 - 16.0 G/DL) 10.4 L 11.3 L Hct (37 - 47 %) 31.5 L 34.8 L MCV (81.0 - 99.0 FL) 80.5 L 81.2 MCH (27.0 - 31.0 PG) 26.6 L 26.4 L RDW (11.5 - 14.5 %) 17.2 H 17.0 H Plt Count (130 - 400 /CUMM) 189 238 MPV (7.4 - 10.4 FL) 8.1 7.4 Gran % (42.2 - 75.2 %) 72.1 75.5 H Lymphocytes % (20.5 - 51.1 %) 14.9 L 13.6 L Monocytes % (1.7 - 9.3 %) 8.8 8.0 Eosinophils % (0 - 5 %) 3.6 2.4 Basophils % (0.0 - 2.0 %) 0.6 0.5 Absolute Granulocytes (1.4 - 6.5 /CUMM) 5.8 8.3 H Absolute Lymphocytes (1.2 - 3.4 /CUMM) 1.2 1.5 Absolute Monocytes (0.10 - 0.60 /CUMM) 0.7 H 0.9 H Absolute Eosinophils (0.0 - 0.7 /CUMM) 0.3 0.3 Absolute Basophils (0.0 - 0.2 /CUMM) 0 0.1 PUBS MCHC (33.0 - 37.0 G/DL) 33.0 32.4 L Disposition Summary Disposition Principal Diagnosis: Fall and fracture in the bimaleolar Additional Diagnosis: COPD HTN Discharge Disposition: SNF Discharge Instructions General Discharge Information Code Status: Do Not Resucitate/Intubat Patient's Diet: heart healthy Patient's Activity: non weight bearing LLE for 6 weeks Follow-Up Instructions/Appts: -Please follow-up with your primary care provider within 7 days after discharge. -Please follow-up with the orthopedic surgeon 7 days after discharge -We have made changes to your home medications, please read the instructions carefully. -Please come back to the hospital if your symptoms got worse. -check CBC on 05/12/2017 Medications at Discharge Discharge Medications: Stop taking the following medications: Meloxicam (Mobic) 15 MG TABLET ORAL DAILY NEEDED Ibuprofen (Motrin Ib) 200 MG TABLET ORAL 3-4 times daily as needed Continue taking these medications: Aspirin (Aspirin*) 81 MG TAB.CHEW 81 Milligram ORAL DAILY Atorvastatin Calcium (Atorvastatin Calcium) 10 MG TABLET 10 Milligram ORAL DAILY Omeprazole (Omeprazole) 40 MG CAPSULE.DR 1 Capsule ORAL DAILY Bimatoprost (Lumigan) 0.01 % DROPS 1 Drop OPHTHALMIC DAILY Fluticasone-Salmeterol (Advair 100-50 Diskus) 100 MCG-50 MCG/DOSE BLST.W.DEV 1 PUFF Inhale through mouth TWICE DAILY Benazepril HCl (Benazepril HCl) 20 MG TABLET 20 Milligram ORAL DAILY Montelukast Sodium (Singulair) 10 MG TABLET 10 Milligram ORAL DAILY LORazepam (Ativan) 1 MG TABLET 1 Milligram ORAL TWICE DAILY Gabapentin (Neurontin) 300 MG CAPSULE 300 Milligram ORAL DAILY Cholecalciferol (Vitamin D3) (Vitamin D) 1,000 UNIT TABLET 1,000 Units ORAL DAILY Levothyroxine Sodium (Levothyroxine Sodium) 150 MCG TABLET 1 Tablet ORAL DAILY BEFORE BREAKFAST Metoprolol Tartrate (Metoprolol Tartrate) 25 MG TABLET 25 Milligram ORAL DAILY Hydrochlorothiazide (Hydrochlorothiazide) 25 MG TABLET 25 Milligram ORAL DAILY Sennosides (Senna) 8.6 MG TABLET 8.6 Milligram ORAL DAILY Sertraline HCl (Zoloft) 100 MG TABLET 150 Milligram ORAL DAILY Acetaminophen With Codeine (Acetamin-Codein 300-30 MG/12.5) 300 MG-30 MG/12.5 ML (12.5 ML) SOLUTION 1 Tablet ORAL EVERY 8 HOURS NEEDED as needed for for pain Aripiprazole (Abilify) 2 MG TABLET 2 Milligram ORAL DAILY Vit A/Vit C/Vit E/Zinc/Copper (Preservision Areds Tablet) 7,160-113 TABLET 1 Tablet ORAL TWICE DAILY Cetirizine HCl (Zyrtec) 10 MG TABLET 1 Tablet ORAL DAILY Start taking the following new medications: Apixaban (Eliquis) 2.5 MG TABLET 2.5 Milligram ORAL TWICE DAILY Qty = 90 No Refills Instructions: last dose on 05/30/2017 and then stop Copies To: Deb PHAM,John Lerma; Julia PHAM,Ajay Daley
[2017-05-01 08:50] LABS: ABSOLUTE BASOPHIL COUNT 0 /CUMM (0.0-0.2); ABSOLUTE EOSINOPHIL COUNT 0.3 /CUMM (0.0-0.7); ABSOLUTE GRANULOCYTE CT 5.8 /CUMM (1.4-6.5); ABSOLUTE LYMPH COUNT 1.2 /CUMM (1.2-3.4); ABSOLUTE MONOCYTE COUNT 0.7 /CUMM (0.10-0.60); BASOPHIL % 0.6 % (0.0-2.0); EOSINOPHIL % 3.6 % (0-5); GRANULOCYTE % 72.1 % (42.2-75.2); HEMATOCRIT 31.5 % (37-47); MEAN CORPUSCULAR HGB 26.6 PG (27.0-31.0); MEAN CORPUSCULAR VOLUME 80.5 FL (81.0-99.0); MEAN PLATELET VOLUME 8.1 FL (7.4-10.4); PLATELET COUNT 189 /CUMM (130-400); RBC DISTRIBUTION WIDTH 17.2 % (11.5-14.5); RED BLOOD CELL CT 3.91 /CUMM (4.20-5.40)
--- NOTE | 2017-05-01 09:50 | Admission Certification ---
Admission Certification Certification Statement - As attending physician, I certify that at the time of - admission, based on clinical presentation, severity of - symptoms, need for further diagnostic testing and - therapeutic interventions, and risk of adverse outcomes - without in-hospital treatment, in my clinical assessment, - this patient requires an acute hospital stay for a minimum - of two nights or longer. I have also considered psychsocial - factors such as support system, advanced age, financial - issues, cognitive issues, and failed out-patient treatments, - past re-admission history, safety of patient, and lack of - compliance as applicable. Specific rationale supporting this admission is: Left ankle fracture dislocation after a mechanical fall
--- NOTE | 2017-05-01 11:32 | Patient Discharge Instructions ---
Discharge Instructions General Discharge Information You were seen/treated for: Fall Ankle fracture You had these procedures: Ankle surgery(ORIF) Special Instructions: -Please follow-up with your primary care provider within 7 days after discharge. -Please follow-up with the orthopedic surgeon 7 days after discharge -We have made changes to your home medications, please read the instructions carefully. -Please come back to the hospital if your symptoms got worse. -check CBC on 05/12/2017 Diet Recommended Diet: Heart Healthy Activity Activity Self Limited: Yes Activity Limited to: No weight bearing (LLE) Acute Coronary Syndrome Inclusion Criteria At DC or during hospital stay patient has or had the following: ACS DIAGNOSIS No Discharge Core Measures Meds if any: Prescribed or Continued at Discharge Meds if any: NOT Prescribed or Continued at Discharge Congestive Heart Failure Inclusion Criteria At DC or during hospital stay patient has or had the following: CHF DIAGNOSIS No Discharge Core Measures Meds if any: Prescribed or Continued at Discharge Meds if any: NOT Prescribed or Continued at Discharge Cerebrovascular accident Inclusion Criteria At DC or during hospital stay patient has or had the following: CVA/TIA Diagnosis No Discharge Core Measures Meds if any: Prescribed or Continued at Discharge Meds if any: NOT Prescribed or Continued at Discharge Venous thromboembolism Inclusion Criteria VTE Diagnosis No VTE Type NONE VTE Confirmed by (Test) NONE Discharge Core Measures - Per Current guidelines, there needs to be overlap - treatment for the first 5 days of Warfarin therapy. - If discharged on Warfarin prior to 5 days of - overlap therapy, the patient will need to be - assessed for post discharge needs including - *Post discharge parental anticoagulation - *Warfarin and/or parental anticoagulation education - *Follow up date to check INR post discharge At least 5 days overlap therapy as Inpatient No Meds if any: Prescribed or Continued at Discharge Note: Overlap Therapy is Warfarin and Anticoagulant Meds if any: NOT Prescribed or Continued at Discharge
[2017-05-01 14:34] VITALS: BP 148/68
[2017-05-01 18:45] VITALS: BP 118/80
[2017-05-01 21:56] VITALS: BP 110/64
--- NOTE | 2017-05-01 23:10 | RADIOLOGY REPORT ---
EXAMINATION: XR ANKLE, LEFT, C-arm imaging CLINICAL INFORMATION: ORIF, bimalleolar ankle fracture COMPARISON: Left ankle 04/30/2017 TECHNIQUE: C-arm imaging of the left ankle. Fluoroscopy time: 30 seconds. Number of images: 21 FINDINGS: Spot views show placement of orthopedic plate and screw lateral malleolus. There is 2 screws placed through the medial malleolus. Both malleolar fractures are fixated in alignment. IMPRESSION: Status post internal fixation bimalleolar fracture of ankle.
[2017-05-02 06:33] VITALS: BP 118/78
--- NOTE | 2017-05-02 07:21 | PN- Housestaff ---
Nathen Leary 05/02/17 0720: Subjective Follow-up For: ankle fx hx of anixety depression Subjective: I have seen and examined the patient. pain is controlled post op ankle surgery day 1. Review of Systems Constitutional: Reports: see HPI. Objective Last 24 Hrs of Vital Signs/I&O Vital Signs Date Time Temp Pulse Resp B/P B/P Pulse O2 O2 Flow FiO2 Mean Ox Delivery Rate 05/02 1110 57 118/78 05/02 1046 Nasal 2.0L Cannula 05/02 0633 98.1 57 18 118/78 98 05/02 0000 93 Nasal 2.0L Cannula 05/01 2156 98.7 77 18 110/64 92 05/01 1845 98.0 76 20 118/80 93 Nasal 2.0L Cannula 05/01 1434 98.9 77 18 148/68 95 Room Air Intake & Output 05/02 1600 05/02 0800 05/02 0000 Intake Total 130 390 Output Total Balance 130 390 Intake, IV 130 150 Intake, Oral 240 Physical Exam General Appearance: Alert, Oriented X3, Cooperative Other Physical Findings: General Appearance Alert, Oriented X3, Cooperative, Mild Distress HEENT Atraumatic Cardiovascular Regular Rate, Normal S1, Normal S2, No Murmurs Lungs Clear to Auscultation Abdomen Normal Bowel Sounds, Soft, No Tenderness Current Medications: Current Medications Sig/Sari Start time Last Medication Dose Route Stop Time Status Admin Acetaminophen 650 MG Q8P PRN 04/30 2345 AC PO Apixaban 2.5 MG BID 05/02 1326 AC 05/02 PO 2106 Aripiprazole 2 MG DAILY 05/02 1000 AC 05/02 PO 1110 Atorvastatin Calcium 10 MG 1700 05/01 1700 AC 05/02 PO 1653 Bisacodyl 10 MG ONCE PRN 05/03 0900 AC MN Budesonide/ 2 PUF BID 05/01 1000 AC 05/02 Formoterol Fumarate INH 2106 Gabapentin 300 MG DAILY 05/01 1000 AC 05/02 PO 1110 Heparin Sodium 5,000 UNIT Q8 05/01 0600 AC 05/03 (Porcine) SC 0522 Hydrochlorothiazide 25 MG DAILY 05/03 1000 AC PO Hydromorphone HCl 0.6 MG Q6-PRN PRN 05/01 1315 AC 05/03 IV 0532 Latanoprost 1 GTT AT BEDTIME 05/01 2200 AC 05/02 OPH 2106 Levothyroxine Sodium 0.15 MG DAILY AC 05/01 0700 AC 05/03 PO 0523 Lidocaine 1 PAT 1000 05/03 1000 AC EXT Lidocaine 1 PAT Q24H 04/30 2345 DC EXT Lorazepam 1 MG BID 05/01 2200 AC 05/02 PO 2106 Metoprolol Succinate 25 MG DAILY 05/01 1000 AC 05/02 PO 1110 Montelukast Sodium 10 MG 2200 05/01 2200 AC 05/02 PO 2106 Omeprazole 40 MG DAILY AC 05/01 0700 AC 05/03 PO 0523 Oxycodone HCl 5 MG .STK-MED ONE 05/02 1841 DC PO 05/02 1842 Oxycodone HCl 5 MG .STK-MED ONE 05/02 0949 DC PO 05/02 0950 Oxycodone HCl 5 MG Q6-PRN PRN 04/305 AC 05/02 PO 1841 Polyethylene Glycol 17 GM DAILY 05/03 1000 AC PO Senna/Docusate Sodium 2 TAB DAILY 05/03 1000 AC PO Sertraline HCl 150 MG DAILY 05/01 1000 AC 05/02 PO 1110 Assessment/Plan Assessment: 76 YO lady with PMH of Hypothyroidism, COPD, HTN, diverticulitis S/P hemicolectomy Patient was brought in ER after she had a fall. She was getting out of the car, he tripped and twisted ankle, fell on her back, had severe ankle pain radiating up to hip. She was found to have a laterally displaced bimalleolar fracture with the posterior lateral dislocation of talus and valgus angulation. There is also linear lucency through medial femur oral epicondyles, possibility of acute fracture. Ankle dislocation was reduced in ER Vitals: Unremarkable On exam: A O 3, cooperative, no acute distress, neck supple, JVD normal, no lymphadenopathy, mucosa moist, no focal neurological deficit, no dependent edema , no obvious skin rashes or inflammation left lower extremity in splint, CVS: S1 -S2, RRR. RS: Clear to auscultate bilaterally. Abdomen: Soft, NT, ND, bowel sounds present. Labs: CBC, BMP, LFT unremarkable, INR 1.04 X-ray left ankle: Laterally displaced bimalleolar fracture with posterolateral dislocation of the talus and valgus angulation X-ray left hip: Laterally displaced bimalleolar fracture with posterolateral dislocation of the talus and valgus angulation X-ray left knee: Appropriate alignment of the left total knee arthroplasty. Linear lucency through the medial femoral epicondyle is indeterminate, possibly an acute fracture. Recommend correlation for point tenderness in this region. Repeat x-ray ankle: Interval reduction of the laterally displaced bimalleolar fracture and reapproximation of the talotibial articulation. - Persistent angulation and offset of the distal fibular fracture and widening of the lateral clear space. Assessment and plan + Left ankle fracture dislocation and morbid obesity RCRI 0.4 % risk of cardiac morbidity post up day 1 per Orthopedic consult dvt ppx for 6 weeks (elluquis low dose) - Adequate pain control - Continue immobilization of left lower extremity -most likely needs rehab + Hypothyroidism, COPD, HTN, diverticulitis S/P hemicolectomy - Continue all the home medications except HCTZ, hx of anxiety depression -c/w abillify dnr/dni, heart health diet Problem List: 1. Ankle fracture Pain Ratin Pain Location: pain free Pain Goal: Pain 4 or less Pain Plan: same Tomorrow's Labs & Rationales: cbc bep Elieser Kline 05/02/17 1420: Attending MD Review Statement Attending Statement Attending MD Statement: examined this patient, discuss w/resident/PA/FINANCIAL AID ADMINISTRATOR, agreed w/resident/PA/FINANCIAL AID ADMINISTRATOR, reviewed EMR data (avail), discussed with nursing, discussed with case mgmt Attending Assessment/Plan: agree with the above assessment and plan. possible dc tomorrow . pt prefers [facility] for [facility].
[2017-05-02 09:40] LABS: ABSOLUTE BASOPHIL COUNT 0 /CUMM (0.0-0.2); ABSOLUTE EOSINOPHIL COUNT 0 /CUMM (0.0-0.7); ABSOLUTE MONOCYTE COUNT 0.7 /CUMM (0.10-0.60); BASOPHIL % 0.1 % (0.0-2.0); EOSINOPHIL % 0 % (0-5); GRANULOCYTE % 82.3 % (42.2-75.2); HEMATOCRIT 30.4 % (37-47); MEAN CORPUSCULAR HGB 26.8 PG (27.0-31.0); MEAN CORPUSCULAR VOLUME 81.1 FL (81.0-99.0); MEAN PLATELET VOLUME 8.5 FL (7.4-10.4); PLATELET COUNT 203 /CUMM (130-400); RED BLOOD CELL CT 3.75 /CUMM (4.20-5.40); WHITE BLOOD CELL COUNT 9.8 /CUMM (4.8-10.8)
--- NOTE | 2017-05-02 10:09 | PN- Orthopedic ---
Subjective Subjective: No acute overnight events reported. Presently denies pain. Denies chest pain, shortness of breath and difficulty breathing. Denies nausea and vomitting. Has been voiding. Objective Vital Signs and I&Os Vital Signs Date Time Temp Pulse Resp B/P B/P Pulse O2 O2 Flow FiO2 Mean Ox Delivery Rate 05/02 0633 98.1 57 18 118/78 98 05/02 0000 93 Nasal 2.0L Cannula 05/01 2156 98.7 77 18 110/64 92 05/01 1845 98.0 76 20 118/80 93 Nasal 2.0L Cannula 05/01 1434 98.9 77 18 148/68 95 Room Air Intake & Output 05/02 1600 05/02 0800 05/02 0000 05/01 1600 05/01 0800 05/01 0000 Intake Total 130 390 210 100 500 Output Total 400 300 30 Balance 130 390 -190 -200 470 Intake, IV 130 150 150 0 500 Intake, Oral 240 60 100 Number 0 0 Bowel Movements Output, Urine 400 300 30 Patient 212 lb Weight Physical Exam: General: Alert and oriented x3, no acute distress Cardiac: RRR, s1s2 Pulm: CTA bilaterally ABD: Non-tender, non-distended Extremities: Moves all extremities, distal sensations grossly intact. Skin warm and well perused. DP pulses palpable bilaterally. Right calf soft and non- tender. Left calf in spint, proximal to splint, calf soft. Dressing dry and intact. Assessment/Plan Assessment/Plan This is a 76 year old female, POD 1, s/p ORIF left ankle -Non weight bearing and immobilized x6 weeks -Continue current pain regimen -ABX ppx x24 hours -DVT ppx at disgression of medical team -Anticipate dc to str, pt requesting [facility] Aparicio Discussed with Dr. José Core Measures Venous Thromboembolism VTE Risk Factors Age>40 No Mechanical VTE Prophylaxis d/t Other No VTE Pharm Prophylaxis d/t Other
--- NOTE | 2017-05-02 12:34 | Operative Report ---
Operative/Inv Procedure Report Surgery Date: 05/01/17 Name of Procedure: Open reduction internal fixation left bimalleolar ankle fracture Pre-Operative Diagnosis: Left bimalleolar ankle fracture Post-Operative Diagnosis: Same Estimated Blood Loss: mare Surgeon/Biology Professor: deb Anesthesia: general endotracheal tube IV Fluids: See anesthesia record Implants: Tyrese variax ankle plating system Drains: None Specimens: None Tourniquet: 70 minutes Complications: None Condition: Stable Operative Indication: Patient is a 76-year-old female had a mechanical fall on Saturday. She was seen in the emergency room a [facility] where x-rays revealed a bimalleolar ankle fracture dislocation. She was admitted to the medical service and cleared for surgical intervention which was strongly recommended due to the nature of the fracture. The risks and benefits the procedure discussed with the patient in detail prior to proceeding. Operative/Procedure Note Note: Once informed consent was obtained and the correct limb was identified the patient brought to operative room placed on table in the supine position. A bump was placed on the left hip. A thigh tourniquet was placed in left lower extremity. Left lower extremity was prepped and draped in usual sterile fashion. To begin the procedure a lateral incision was made over the fibula. Sharp dissection was carried down to skin and subcutaneous tissue with care to avoid neurovascular structures. The fibular fracture but easily identifiable and the fracture edges were cleaned off prior fracture reduction. The fracture was reduced and held in place with a reduction clamp. A lag screw was then placed across the fracture site using standard AO technique. Once this was done a multi hole cluster plate for the fibula which is anatomically comport from the Tyrese system was placed on the lateral fibula. This was pinned in place and plate position was confirmed with fluoroscopy in the AP and lateral planes. Locking screws of appropriate length were then used on the distal fibula through the cluster holes in order to secure the plate distally. 3.5 cortical screws were appropriate length were then used to secure the plate to the fibular shaft proximal to the fracture site. Excellent fracture reduction was obtained and maintained and confirmed using fluoroscopy in the AP, mortise, lateral planes. The wound was copiously irrigated and the tissues were closed with 0 Vicryl, 2-0 Vicryl sutures and the skin was closed diana. Attention was then turned to the medial malleolar fracture. Incision was made directly over the medial malleolus with care to avoid the saphenous vein malleolar fracture was easily identifiable and debris was cleared and a fracture reduction was done of the medial malleolus and held in place with a dental pick. 2 K wires for the 4.0 cannulated screws from [employer] system were then placed across the fracture site. Reduction was checked with fluoroscopy and 250 mm partially threaded 4.0 cannulated screws were placed over the guidewires for fracture stabilization and fixation. The guidewire was removed and final images confirmed excellent reduction of bimalleolar ankle fracture with alignment of the ankle satisfactory and the mortise and lateral planes. The medial malleolar incision was then irrigated and closed with 2-0 Vicryl interrupted sutures and diana. A sterile dressing and splint was applied and the patient was awakened taken recovery room in stable condition. This includes an operative report on Mercedes Marquez
[2017-05-02 15:06] VITALS: BP 112/66
[2017-05-02 22:59] VITALS: BP 128/68
[2017-05-03 06:29] VITALS: BP 138/84
--- NOTE | 2017-05-03 07:29 | PN- Housestaff ---
Nathen Leary 05/03/17 0728: Subjective Follow-up For: avni aguayo fall htn Subjective: I have seen and examined the patient. Patient pain is controlled. Patient did not have a base he will put her on bowel regimen ready to go to rehabilitation today. Review of Systems Constitutional: Reports: see HPI. Objective Last 24 Hrs of Vital Signs/I&O Vital Signs Date Time Temp Pulse Resp B/P B/P Pulse O2 O2 Flow FiO2 Mean Ox Delivery Rate 05/03 06 98.9 84 20 138/84 92 05/02 2259 99.3 93 16 128/68 92 05/02 1600 91 Room Air 05/02 1506 99.3 95 20 112/66 91 Room Air 05/02 1110 57 118/78 05/02 1046 Nasal 2.0L Cannula Intake & Output 05/03 1600 05/03 0800 05/03 0000 Intake Total 250 600 Output Total 400 150 Balance -150 450 Intake, IV 10 Intake, Oral 240 600 Output, Urine 400 150 Physical Exam General Appearance: Alert, Oriented X3, Cooperative Other Physical Findings: General Appearance Alert, Oriented X3, Cooperative, Mild Distress HEENT Atraumatic Cardiovascular Regular Rate, Normal S1, Normal S2, No Murmurs Lungs Clear to Auscultation Abdomen Normal Bowel Sounds, Soft, No Tenderness Current Medications: Current Medications Sig/Sari Start time Last Medication Dose Route Stop Time Status Admin Acetaminophen 650 MG Q8P PRN 04/30 2345 AC PO Apixaban 2.5 MG BID 05/02 1326 AC 05/02 PO 2106 Aripiprazole 2 MG DAILY 05/02 1000 AC 05/02 PO 1110 Atorvastatin Calcium 10 MG 1700 05/01 1700 AC 05/02 PO 1653 Bisacodyl 10 MG ONCE PRN 05/03 0900 AC HI Budesonide/ 2 PUF BID 05/01 1000 AC 05/02 Formoterol Fumarate INH 2106 Gabapentin 300 MG DAILY 05/01 1000 AC 05/02 PO 1110 Heparin Sodium 5,000 UNIT Q8 05/01 0600 AC 05/03 (Porcine) SC 0522 Hydrochlorothiazide 25 MG DAILY 05/03 1000 AC PO Hydromorphone HCl 0.6 MG Q6-PRN PRN 05/01 1315 AC 05/03 IV 0532 Latanoprost 1 GTT AT BEDTIME 12/27 2200 AC 05/02 OPH 2106 Levothyroxine Sodium 0.15 MG DAILY AC 05/01 0700 AC 05/03 PO 0523 Lidocaine 1 PAT 1000 05/03 1000 AC EXT Lidocaine 1 PAT Q24H 04/30 2345 DC EXT Lorazepam 1 MG BID 05/01 2200 AC 05/02 PO 2106 Metoprolol Succinate 25 MG DAILY 05/01 1000 AC 05/02 PO 1110 Montelukast Sodium 10 MG 2200 05/01 220 AC 05/02 PO 210 Omeprazole 40 MG DAILY AC 05/01 0700 AC 05/03 PO 0523 Oxycodone HCl 5 MG .STK-MED ONE 05/02 1841 DC PO 05/02 1842 Oxycodone HCl 5 MG .STK-MED ONE 05/02 0949 DC PO 05/02 0950 Oxycodone HCl 5 MG Q6-PRN PRN 04/30 2345 AC 05/02 PO 1841 Polyethylene Glycol 17 GM DAILY 05/03 1000 AC PO Senna/Docusate Sodium 2 TAB DAILY 05/03 1000 AC PO Sertraline HCl 150 MG DAILY 05/01 1000 AC 05/02 PO 1110 Assessment/Plan Assessment: 76 YO lady with PMH of Hypothyroidism, COPD, HTN, diverticulitis S/P hemicolectomy Patient was brought in ER after she had a fall. She was getting out of the car, he tripped and twisted ankle, fell on her back, had severe ankle pain radiating up to hip. She was found to have a laterally displaced bimalleolar fracture with the posterior lateral dislocation of talus and valgus angulation. There is also linear lucency through medial femur oral epicondyles, possibility of acute fracture. Ankle dislocation was reduced in ER. Vitals: Unremarkable On exam: A O 3, cooperative, no acute distress, neck supple, JVD normal, no lymphadenopathy, mucosa moist, no focal neurological deficit, no dependent edema , no obvious skin rashes or inflammation left lower extremity in splint, CVS: S1 -S2, RRR. RS: Clear to auscultate bilaterally. Abdomen: Soft, NT, ND, bowel sounds present. Labs: CBC, BMP, LFT unremarkable, INR 1.04 X-ray left ankle: Laterally displaced bimalleolar fracture with posterolateral dislocation of the talus and valgus angulation X-ray left hip: Laterally displaced bimalleolar fracture with posterolateral dislocation of the talus and valgus angulation X-ray left knee: Appropriate alignment of the left total knee arthroplasty. Linear lucency through the medial femoral epicondyle is indeterminate, possibly an acute fracture. Recommend correlation for point tenderness in this region. Repeat x-ray ankle: Interval reduction of the laterally displaced bimalleolar fracture and reapproximation of the talotibial articulation. - Persistent angulation and offset of the distal fibular fracture and widening of the lateral clear space. Assessment and plan + Left ankle fracture dislocation and morbid obesity RCRI 0.4 % risk of cardiac morbidity post up day 2 per Orthopedic consult dvt ppx for 6 weeks (elliquis low dose) - Adequate pain control with prn narcotis with bowel regimen - Continue immobilization of left lower extremity -most likely needs rehab + Hypothyroidism, COPD, HTN, diverticulitis S/P hemicolectomy - Continue all the home medications hx of anxiety depression -c/w abillify dnr/dni, heart health diet Problem List: 1. Fall 2. Ankle fracture Pain Ratin Pain Location: left ankle Pain Goal: Pain 4 or less Pain Plan: same Tomorrow's Labs & Rationales: dc today Elieser Kline 05/03/17 1440: Attending MD Review Statement Attending Statement Attending MD Statement: examined this patient, discuss w/resident/PA/WIRE COATING MACHINE OPERATOR, agreed w/resident/PA/WIRE COATING MACHINE OPERATOR, reviewed EMR data (avail), discussed with nursing, discussed with case mgmt Attending Assessment/Plan: Plan dc to [facility] today if constipation resolves. . Given stool softeners for constipation.
--- NOTE | 2017-05-03 07:50 | PN- Orthopedic ---
Subjective Subjective: No complaints. Pain controlled. No chest pain, sob, difficulty breathing. No nausea or vomitting. Voiding, no bm. Objective Vital Signs and I&Os Vital Signs Date Time Temp Pulse Resp B/P B/P Pulse O2 O2 Flow FiO2 Mean Ox Delivery Rate 05/03 0629 98.9 84 20 138/84 92 05/02 2259 99.3 93 16 128/68 92 05/02 1600 91 Room Air 05/02 1506 99.3 95 20 112/66 91 Room Air 05/02 1110 57 118/78 05/02 1046 Nasal 2.0L Cannula 05/02 800 18 97 Room Air Intake & Output 05/03 0805/03 0000 05/02 1600 05/02 0800 05/02 0000 05/01 1600 Intake Total 250 600 470 390 210 Output Total 400 150 300 200 400 Balance -150 450 -300 270 390 -190 Intake, IV 10 230 150 150 Intake, Oral 240 600 240 240 60 Number 0 Bowel Movements Output, Urine 400 150 300 200 400 Physical Exam: General: AAO x3, no acute distress Cards: RRR, s1s2 Pulm: Non-labored, cta Abd: Non-distedned Extrem: Moves all extremities, distal sesnation intact. Skin warm. BLE neurovascularly intact. Right calf soft and non-tender, splint in place on left. Assessment/Plan Assessment/Plan This is a 76 year old female . POD 2, s/o ORIF left ankle -Continue current pain regimen -Bowel regimen per medicine -DVT ppx: Eliquis 2.5 bid, x4 weeks -Dressing: Can remain intact, no dressing change here in hospital -Activity: NWB -Follow up: Follow up with Dr. José in office in 10-12 days for staple removal Continue primary care per medicine team, surgery will remain available for consultation. Discussed with Dr. José
[2017-05-03 09:25] LABS: ABSOLUTE BASOPHIL COUNT 0.1 /CUMM (0.0-0.2); ABSOLUTE EOSINOPHIL COUNT 0.2 /CUMM (0.0-0.7); ABSOLUTE GRANULOCYTE CT 5.9 /CUMM (1.4-6.5); ABSOLUTE LYMPH COUNT 2.2 /CUMM (1.2-3.4); ABSOLUTE MONOCYTE COUNT 0.9 /CUMM (0.10-0.60); BASOPHIL % 0.7 % (0.0-2.0); EOSINOPHIL % 2.3 % (0-5); GRANULOCYTE % 63.6 % (42.2-75.2); HEMATOCRIT 29.4 % (37-47); MEAN CORPUSCULAR HGB 27.1 PG (27.0-31.0); MEAN CORPUSCULAR HGB CONC 33.4 G/DL (33.0-37.0); MEAN PLATELET VOLUME 8.1 FL (7.4-10.4); PLATELET COUNT 182 /CUMM (130-400); RBC DISTRIBUTION WIDTH 17.4 % (11.5-14.5); RED BLOOD CELL CT 3.63 /CUMM (4.20-5.40); WHITE BLOOD CELL COUNT 9.2 /CUMM (4.8-10.8)
[2017-05-03] MEDS ORDERED: ELIQUIS2.5 M1 PO ×2 (10:05→10:07)
[2017-05-03 14:29] VITALS: BP 140/72
[2017-05-03 16:23] VITALS: BP 140/72
== END 2017-05-03 16:58 | DRG 493 ==
LOC: ERH 15:00 → 2NB 20:56 → ERHI 20:56 → ENRESERV 21:46 → ENTRNSPT 22:23 → 2NB 22:57 → CMPTRNSPT 05-01 07:29 → ENTRNSPT 05-01 18:06 → EDTRNSPTSTS 05-01 18:14 → EDTRNSPT 05-01 18:14 → CMPTRNSPT 05-01 18:29 → 2NB 05-03 08:31 → ENPENDDIS 05-03 10:57 → 2NB 05-03 16:58
PROVIDERS: Internal Medicine; Internal Medicine Endocrinology, Diabetes & Metabolism; Physician Assistant Medical
PROC: 0QSK04Z Reposition Left Fibula with Internal Fixation Device, Open Approach (ICD-10-PCS; principal; 2017-05-01)
PROC: 0QSH04Z Reposition Left Tibia with Internal Fixation Device, Open Approach (ICD-10-PCS; 2017-05-01)
DX: S82.842A Displaced bimalleolar fracture of left lower leg, initial encounter for closed fracture (principal); Z68.41 Body mass index [BMI] 40.0-44.9, adult; J44.9 Chronic obstructive pulmonary disease, unspecified; E66.01 Morbid (severe) obesity due to excess calories; I10 Essential (primary) hypertension; E03.9 Hypothyroidism, unspecified; X50.1XXA Overexertion from prolonged static or awkward postures, initial encounter; W01.0XXA Fall on same level from slipping, tripping and stumbling without subsequent striking against object, initial encounter; F41.9 Anxiety disorder, unspecified; Z96.653 Presence of artificial knee joint, bilateral; Z96.641 Presence of right artificial hip joint; E78.5 Hyperlipidemia, unspecified; F17.210 Nicotine dependence, cigarettes, uncomplicated; F32.9 Major depressive disorder, single episode, unspecified; Z66 Do not resuscitate
CPT/HCPCS: 2NBSP; 36415; 73502-LT; 73562-LT; 73600-LT; 73610-LT; 82436; 93005; 93010; 96374; 96375; 97161-GP; 97530-GO; C1713; C9399; J0131; J0690; J1100; J1644; J2405; J3490